=== PATIENT | male | born 1975 | race Caucasian/White ===

== ENCOUNTER 2022-07-15 13:28 | Emergency (ER) | payer OTHER, SELFPAY ==
--- NOTE | 2022-07-15 13:39 | ED.CHESTPAIN ---
HPI - Chest Pain General Chief Complaint: Chest Pain Stated Complaint: chest pain, shortness of breath, lt arm pain Time Seen by Provider: 07/15/22 13:46 Source: patient and family Mode of arrival: ambulatory Limitations: no limitations History of Present Illness HPI narrative: Mr. Downs is a 46-year-old male patient presenting to clinic today with complaints of midsternal chest pain, shortness of breath, left arm pain x4 days. He reports that the pain was worse over the weekend. States he has a dull ache in the center to left side of his chest with some burning. He denies any history of GERD. He reports shortness of breath accompanying this chest pain as well as a left arm tingling numbness and pain as well as some dizziness. He is hypertensive in the clinic today. Related Data Home Medications Medication Instructions Recorded Confirmed No Home Medications 07/15/22 07/15/22 Allergies Allergy/AdvReac Type Severity Reaction Status Date / Time No Known Allergies Allergy Verified 07/15/22 13:34 Review of Systems Review of Systems: Pertinent positives per HPI. Patient denies any fever, chills, rash, headache, visual changes, cough, runny nose, sore throat, palpitations, nausea, vomiting, diarrhea, constipation, abdominal pain, or any urinary issues. PMFSH Comments At the time of my signature, I reviewed and agree with the nursing past medical, surgical, social, and family history. There is no relevant family history pertinent to the patient complaint. Exam Narrative: General: Well-developed, obese, in mild apparent distress Head: Normocephalic, atraumatic. Cardio: Regular rate and rhythm, s1 and s2 normal, no murmur appreciated. Resp: Clear to auscultation bilaterally, no rhonchi, rales, wheezing or rubs. Extremities: No deformity, no edema, no cyanosis, capillary refill less than 2 seconds, peripheral pulses palpable and strong. Integumentary: [place], warm, and dry, intact without lesion, no rashes. Course Course Emergency Course: Portions of this record may have been created with voice recognition software. Level of Care: Express Care Visit Vital Signs Vital signs: Vital Signs Temperature 36.3 C L 07/15/22 13:45 Pulse Rate 94 07/15/22 13:45 Respiratory Rate 16 07/15/22 13:45 Blood Pressure 154/91 H 07/15/22 13:45 Pulse Oximetry 98 07/15/22 13:45 Temperature 36.3 C L 07/15/22 13:45 Pulse Rate 94 07/15/22 13:45 Respiratory Rate 16 07/15/22 13:45 Blood Pressure 154/91 H 07/15/22 13:45 Pulse Oximetry 98 07/15/22 13:45 Vital signs reviewed MDM - Chest Pain MDM Narrative Medical decision making narrative: At the time of visit patient is laying on the exam stretcher. EKG was performed and showed normal sinus rhythm with incomplete right bundle-branch block with heart rate of 82 beats per minute. Recommend transfer to the emergency room for further evaluation and patient verbalized understanding. Recommend ALS EMS transfer and patient declined and signed AMA and voiced understanding of risks and benefits. Contacted Dr. De La Cruz at [facility] and he accepts patient. Differential Diagnosis Differential diagnosis: Likely unstable angina pectoris, atypical chest pain, st elevation myocardial infarction, costochondritis, chest pain and other (GERD) ECG Data EKG #1: Attestation: I personally reviewed and interpreted this ECG as follows: ECG completion date: 07/15/22 ECG completion time: 13:48 Prior ECG tracings: not available for review Interpretation: EKG shows sinus rhythm with an incomplete right bundle branch block. Heart rate 82 beats per minute, NM interval is 181 milliseconds, QRS duration is 112 milliseconds, QT-QTC is 373-412 milliseconds, P-R-T axis 52-0-22. No comparison EKG available Discharge Plan Discharge Clinical Impression: Shortness of breath Chest pain Qualifiers: Chest pain type: unspecified Qualified Cod
--- NOTE | 2022-07-15 13:44 | ECG_ITS ---
Measurements Intervals [place] Rate: 83 P: 47 [place]: 178 QRS: -15 QRSD: 109 T: 14 QT: 365 QTc: 431 Interpretive Statements SINUS RHYTHM DELAYED PRECORDIAL R/S TRANSITION BORDERLINE T WAVE ABNORMALITY- INFERIOR LEADS BORDERLINE ECG COMPARED TO ECG 07/15/2022 13:48:51 NO SIGNIFICANT CHANGES Electronically Signed On 07-15-2022 16:24:17 BUSHER HELPER by Ryan Vitale D.O.
[2022-07-15 13:45] VITALS: BP 154/91; PULSE 94; RESP 16; TEMP 36.3; O2SAT 98
--- NOTE | 2022-07-15 13:48 | PC.NURSE ---
Patient taken directly to room 9 and EKG done. Shown to provider. Patient skin warm and dry. No shortness of breath.
== END 2022-07-15 14:01 | disposition short-term general hospital (02) ==
PROVIDERS: Emergency Provider Nurse Practitioner Family
DX: R07.9 Chest pain, unspecified (principal); R06.02 Shortness of breath
CPT/HCPCS: 93005; 99213; G0463

== ENCOUNTER 2022-07-15 14:09 | Emergency (ER) | payer OTHER, SELFPAY ==
--- NOTE | ~2022-07-15 | XR_ITS ---
EXAMINATION: XR chest 2V DATE: 07/15/2022 15:06 INDICATION: Chest tightness TECHNIQUE: Frontal and lateral views of the chest are obtained COMPARISON: None available FINDINGS: The lungs are free of acute opacities. No pleural effusion or pneumothorax. The cardiomedia stinal silhouette is normal. There is moderate thoracic spondylosis. Surgical clips in the right uppe r quadrant are likely from prior cholecystectomy. IMPRESSION: 1. No acute cardiopulmonary abnormality. Reviewed, dictated and finalized at location B. FILTER TANK TENDER HELPER
--- NOTE | 2022-07-15 14:11 | ECG_ITS ---
Measurements Intervals [place] Rate: 82 P: 52 [place]: 181 QRS: 0 QRSD: 112 T: 22 QT: 373 QTc: 438 Interpretive Statements SINUS RHYTHM INCOMPLETE RIGHT BUNDLE BRANCH BLOCK BORDERLINE ECG NO PREVIOUS ECG AVAILABLE FOR COMPARISON Electronically Signed On 07-15-2022 16:23:06 LEARNING AND DEVELOPMENT ADMINISTRATOR by Ryan Vitale D.O.
[2022-07-15 14:26] VITALS: BP 153/90; PULSE 88; RESP 18; TEMP 36.7; O2SAT 97
[2022-07-15 14:45] LABS: Basophils Absolute Auto 0.1 K/mm3 (0.0-0.1); Basophils Percent Auto 0.6 % (0.2-1.2); Eosinophils Absolute Auto 0.1 K/mm3 (0-0.3); Eosinophils Percent Auto 1.1 % (0-4.4); Hematocrit 45.7 % (42.0-52.0); Immature Granulocyte Absolute 0.07 K/mm3 (0.00-0.031); Immature Granulocyte Percent A 0.9 % (0-0.5); Lymphocytes Percent Auto 22.2 % (18.3-44.2); Mean Corpuscular HGB Conc 32.8 g/dl (32-36); Mean Corpuscular Hemoglobin 30.1 pg (26-34); Mean Corpuscular Volume 91.8 fl (80-100); Mean Platelet Volume 9.6 fl (7.4-10.4); Monocytes Absolute Auto 0.6 K/mm3 (0.1-0.6); Neutrophils Absolute Auto 5.5 K/mm3 (1.3-6.7); Neutrophils Percent Auto 68.2 % (45.5-73.1); Platelet Count Result 304 k/mm3 (150-375); Red Blood Count 4.98 M/mm3 (4.6-6.20); Red Cell Distribution Width 12.7 % (11.5-14.5); White Blood Count 8.1 K/mm3 (4.5-10.0)
[2022-07-15 14:52] LABS: Alanine Aminotransferase 57 U/L (6-50); Albumin Level 4.4 g/dL (3.5-5.1); Alkaline Phosphatase 66 U/L (38-126); Anion Gap 14 mmol/L (8-16); Aspartate Amino Transferase 37 U/L (17-59); Bilirubin,Total 0.4 mg/dL (0.2-1.3); Blood Urea Nitrogen 14 mg/dL (9-20); Calcium 8.7 mg/dL (8.4-10.2); Carbon Dioxide 30 mmol/L (22-30); Chloride 101 mmol/L (98-107); Estimated CRCL calculation 125 ml/min; Estimated Glomerular Filt Rate > 60; Glucose 110 mg/dL (65-110); Lipase 88 U/L (23-300); Potassium 3.7 mmol/L (3.4-5.0); Sodium 145 mmol/L (137-145)
[2022-07-15 15:01] LABS: Troponin I < 0.012 ng/mL (0.000-0.034)
[2022-07-15 15:13] LABS: INR 1.1; Prothrombin Time 13.5 Seconds (11.1-14.7)
[2022-07-15 15:14] LABS: Partial Thromboplastin Time 32.8 SECONDS (22.3-36.8)
[2022-07-15 18:12] VITALS: BP 156/101; PULSE 88; RESP 21; O2SAT 96
[2022-07-15 18:16] LABS: Troponin I < 0.012 ng/mL (0.000-0.034)
[2022-07-15 18:25] VITALS: PULSE 91; RESP 15; O2SAT 95
--- NOTE | 2022-07-15 18:26 | ED.CHESTPAIN ---
HPI - Chest Pain General Chief Complaint: Chest Pain <LAKIA Rubio Last Filed: 07/15/22 18:56> Stated Complaint: chest pain, dizzy <LAKIA Rubio Last Filed: 07/15/22 18:56> Time Seen by Provider: 07/15/22 18:05 <LAKIA Rubio Last Filed: 07/15/22 18:56> Source: patient <LAKIA Rubio Last Filed: 07/15/22 18:56> Mode of arrival: ambulatory <LAKIA Rubio Last Filed: 07/15/22 18:56> Limitations: no limitations <LAKIA Rubio Last Filed: 07/15/22 18:56> History of Present Illness HPI narrative: This is a 46 year old male that presents to the ER an episode of chest pain that happened 4 days ago. Reports he was driving in the car and felt a dull left sided chest pain. Reports this was associated with pain in the left arm. Lasted for about 10 minutes and resolved without intervention. He presented today as he was concerned about that episode of chest pain and thought he should be evaluated. He has had no further chest pain since. He does not currently have a primary care provider. Denies fever, cough, shortness of breath, or lower extremity edema. <LAKIA Rubio Last Filed: 07/15/22 18:56> Related Data Home Medications: Home Medications Medication Instructions Recorded Confirmed No Home Medications 07/15/22 07/15/22 <LAKIA Rubio Last Filed: 07/15/22 18:56> Allergies/Adverse Reactions: Allergies Allergy/AdvReac Type Severity Reaction Status Date / Time No Known Allergies Allergy Verified 07/15/22 18:12 <LAKIA Rubio Last Filed: 07/15/22 18:56> Review of Systems Review of Systems: CONSTITUTIONAL: Denies fever CARDIOVASCULAR: Reports chest pain. Denies edema. RESPIRATORY: Denies cough or dyspnea. MUSCULOSKELETAL: Denies back pain NEUROLOGIC: Denies weakness. <LAKIA Rubio Last Filed: 07/15/22 18:56> All systems reviewed & are unremarkable except as noted in HPI and below <Karli Dalton PA-C - Last Filed: 07/15/22 18:56> PMFSH Past Medical History Medical History: Medical History (Updated 07/16/22 @ 00:01 by Chel Barbour) No active medical problems <Karli Dalton PA-C - Last Filed: 07/15/22 18:56> Surgical History Surgical History: Surgical History (Updated 07/15/22 @ 18:31 by Karli Dalton PA-C) History of cholecystectomy <Karli Dalton PA-C - Last Filed: 07/15/22 18:56> Social History Social History: Social History (Updated 07/15/22 @ 18:31 by Karli Dalton PA-C) Smoking status: Never smoker <Karli Dalton PA-C - Last Filed: 07/15/22 18:56> Exam Narrative: GENERAL: Well-appearing, well-nourished, and in no acute distress. HEAD: Normocephalic, atraumatic. EYES: EOMI. CHEST: Clear to auscultation. No respiratory distress. No wheezes rales or rhonchi HEART: Regular rate and rhythm. No murmur heard. Normal peripheral pulses. EXTREMITIES: Normal range of motion. No edema. SKIN: Warm, dry, no rash. NEURO: No focal deficits. Alert and oriented x3. PSYCH: Normal mood and affect <Karli Dalton PA-C - Last Filed: 07/15/22 18:56> Course BUDGET CONTROLLER/PA Physician Supervision For this patient encounter, I reviewed the BUDGET CONTROLLER or PA documentation, treatment plan, and medical decision making. I was available for consultation as needed. <Aracelis Bravo MD - Last Filed: 07/30/22 12:54> Vital Signs Vital signs: Vital Signs Temperature 98.1 F 07/15/22 14:26 Pulse Rate 88 07/15/22 14:26 Respiratory Rate 18 07/15/22 14:26 Blood Pressure 153/90 H 07/15/22 14:26 Pulse Oximetry 97 07/15/22 14:26 Temperature 98.1 F 07/15/22 14:26 Pulse Rate 83 07/15/22 19:01 Respiratory Rate 22 H 07/15/22 19:01 Blood Pressure 134/89 07/15/22 19:01 Pulse Oximetry 98 07/15/22 19:01 <Karli Dalton PA-C - Last Filed: 07/15/22 18:56> Vital Signs Temperature 98.1
[2022-07-15 18:59] VITALS: PULSE 86; RESP 32; O2SAT 97
[2022-07-15 19:00] VITALS: BP 134/89; PULSE 85; PULSE 89; RESP 18; RESP 21; O2SAT 96; O2SAT 97
[2022-07-15 19:01] VITALS: BP 134/89; PULSE 83; RESP 22; O2SAT 98
== END 2022-07-15 19:00 | disposition home or self-care (01) ==
PROVIDERS: Emergency Medicine; Emergency Provider Emergency Medicine
DX: R07.9 Chest pain, unspecified (principal)
CPT/HCPCS: 36415; 71046; 80053; 83690; 84484; 85025; 85610; 85730; 93005; 99284

== ENCOUNTER 2024-06-16 08:42 | Emergency (ER) | payer OTHER, SELFPAY ==
--- NOTE | ~2024-06-16 | CT_ITS ---
EXAMINATION: CT lumbar spine wo con DATE: 06/16/2024 09:28 INDICATION: Low back pain. TECHNIQUE: Computed tomography (CT) of the lumbar spine was performed without intravenous contrast. A utomated exposure control and iterative reconstruction technique were employed. The dose-length produ ct was 1413.96 mGy-cm. COMPARISON: None FINDINGS: There is 6 degrees levocurvature of lumbar spine. Vertebral body heights are normal. There is mildly decreased disc height at L3-L4 and L4-L5. The following disc levels are specifically discus sed: L1-L2: The disc does not extend beyond the endplate margin. There is mild bilateral facet joint osteo arthritis. There is no neural foraminal stenosis. There is no central canal stenosis. L2-L3: The disc does not extend beyond the endplate margin. There is moderate right and mild left fac et joint osteoarthritis. There is no neural foraminal stenosis. There is no central canal stenosis. L3-L4: The disc is bulging. There is mild right and moderate left facet joint osteoarthritis. There i s mild bilateral neural foraminal stenosis. There is no central canal stenosis. L4-L5: The disc is bulging. There is mild bilateral facet joint osteoarthritis. There is mild bilater al neural foraminal stenosis. There is mild central canal stenosis. L5-S1: The disc is bulging. There is severe bilateral facet joint osteoarthritis. There is mild right neural foraminal stenosis. There is mild central canal stenosis. IMPRESSION: 1. Mild lumbar spondylosis. Reviewed, dictated and finalized at location A. IMPRESSION: 1. Mild lumbar spondylosis.
[2024-06-16 08:48] VITALS: BP 149/91; PULSE 79; RESP 20; TEMP 36.6; O2SAT 96
[2024-06-16] MEDS: ACETAMINOPHEN 500 MG TABLET 1000 MG PO (09:17)
[2024-06-16] MEDS: diazePAM INJ (*CRX) 10 MG/2 ML SYRINGE 5 MG IM (09:17)
--- NOTE | 2024-06-16 09:17 | ED.BACK ---
HPI - Back Pain/Injury General Chief Complaint: Back Pain/Injury Stated Complaint: back pain Time Seen by Provider: 06/16/24 08:50 Source: patient Mode of arrival: ambulatory Limitations: no limitations History of Present Illness HPI Narrative: This is a 48 year old male that presents to the ER for low back pain. Ongoing since an injury several months ago. Reports slipping and injuring his back. He was seeing a chiropractor and improving. He then rode in a car all day Thursday. Pain started to worsen again Thursday. Reports the pain is left lower back. Worse with movement. Relieved with rest. He took Aleve this morning for pain. Denies saddle anesthesia, or bowel/bladder incontinence. Related Data Allergies Allergy/AdvReac Type Severity Reaction Status Date / Time No Known Allergies Allergy Verified 06/16/24 08:43 Review of Systems Review of Systems: CONSTITUTIONAL: Denies fever SKIN: Denies rash MUSCULOSKELETAL: Reports back pain, joint pain, and myalgia. NEUROLOGIC: Denies numbness, or weakness. All systems reviewed & are unremarkable except as noted in HPI and below PMFSH Past Medical History Medical History (Updated 06/16/24 @ 09:54 by Karli Dalton PA-C) No active medical problems Surgical History Surgical History (Updated 07/15/22 @ 18:31 by Karli Dalton PA-C) History of cholecystectomy Social History Social History (Updated 07/15/22 @ 18:31 by Karli Dalton PA-C) Smoking status: Never smoker Exam Narrative: GENERAL: Well-appearing, well-nourished, and in no acute distress. HEAD: Normocephalic, atraumatic. EYES: EOMI. CHEST: Clear to auscultation. No respiratory distress. No wheezes rales or rhonchi HEART: Regular rate and rhythm. No murmur heard. Normal peripheral pulses. BACK: No midline spinal tenderness EXTREMITIES: Normal range of motion. No edema. Strength equal in bilateral lower extremities (5/5) SKIN: Warm, dry, no rash. NEURO: No focal deficits. Alert and oriented x3. PSYCH: Normal mood and affect Course Course Emergency Course: Patient updated on his workup and agrees with plan of care Vital Signs Vital signs: Vital Signs Temperature 98 F 06/16/24 08:48 Pulse Rate 79 06/16/24 08:48 Respiratory Rate 20 06/16/24 08:48 Blood Pressure 149/91 H 06/16/24 08:48 Pulse Oximetry 96 06/16/24 08:48 Temperature 98 F 06/16/24 08:48 Pulse Rate 79 06/16/24 08:48 Respiratory Rate 20 06/16/24 08:48 Blood Pressure 149/91 H 06/16/24 08:48 Pulse Oximetry 96 06/16/24 08:48 MDM - Back Pain/Injury MDM Narrative Medical decision making narrative: Patient presents the emergency department for low back pain ongoing over the last several months. No recent injuries or trauma. Patient is neurologically intact. CT lumbar spine shows mild lumbar spondylosis. Patient updated on his workup and agrees with plan of care. He is to follow up with primary provider. Also given information for neurosurgery follow-up if needed. He was given warnings to return to the ER Differential Diagnosis Differential diagnosis: Likely lumbar radiculopathy, sciatica and strain of lumbar region Imaging Data Radiologist's impression: ITS Impressions Lumbar Spine CT 06/16/24 09:38 IMPRESSION: 1. Mild lumbar spondylosis. Critical Care Time Critical Care Time Critical Care Time: No Discharge Plan Discharge Clinical Impression: Low back pain Qualifiers: Chronicity: chronic Back pain laterality: left Sciatica presence: without sciatica Qualified Code(s): M54.50 - Low back pain, unspecified Patient Disposition: Home, Self-Care Condition: Stable Instructions: Back Pain (ED) Additional Instructions: Return to the ER if you experience weakness, numbness, bowel/bladder incontinence, or any other symptoms that are concerning to you Rest, use ice/heat, take anti-inflammatories (Aleve, Ibuprofen, Naproxen, etc) or Tylenol as needed for kassy
[2024-06-16 10:01] VITALS: BP 130/88; PULSE 83; RESP 20; O2SAT 95
== END 2024-06-16 10:35 | disposition home or self-care (01) ==
PROVIDERS: Emergency Provider Physician Assistant
DX: M54.50 Low back pain, unspecified (principal); G89.29 Other chronic pain; Z90.49 Acquired absence of other specified parts of digestive tract; M47.816 Spondylosis without myelopathy or radiculopathy, lumbar region
CPT/HCPCS: 72131; 96372; 99284; A9270; J3360